=== PATIENT | male | born 1955 | race Caucasian/White ===

== ENCOUNTER 2021-11-29 04:38 | Day surgery (SDC) | payer BC ==
[2021-11-26 12:53] VITALS: BMI 26.4
[2021-11-29] MEDS ORDERED: ACETAMINOPHEN INJECTION 100 ML IVPB ONE (07:04)
[2021-11-29] MEDS ORDERED: PROPOFOL 40 ML ONE (07:04)
[2021-11-29] MEDS ORDERED: MIDAZOLAM HCL 2 MG/2 ML SINGLE DOSE VIAL ONE (07:04)
[2021-11-29] MEDS ORDERED: LIDOCAINE HCL 2% 100 MG/5 ML DISP.SYRIN ONE (07:05)
[2021-11-29] MEDS ORDERED: SUCCINYLCHOLINE CHLORIDE 200 MG/10 ML SYRINGE ONE (07:09)
[2021-11-29] MEDS ORDERED: GEMCITABINE HCL 1 GM/50 ML DISP.SYRIN (OR USE ONLY) IS ONE ×2 (07:30)
[2021-11-29] MEDS ORDERED: DEXAMETHASONE SOD PHOSPHATE 4 MG/1 ML VIAL ONE (07:44)
[2021-11-29] MEDS ORDERED: ONDANSETRON 4 MG/2 ML VIAL ONE (07:44)
[2021-11-29] MEDS ORDERED: ceFAZolin SODIUM 1 GM VIAL IVPB ONE (07:55)
[2021-11-29] MEDS ORDERED: ROCURONIUM BROMIDE 50 MG/5 ML SYRINGE ONE (07:59)
[2021-11-29] MEDS ORDERED: NEOSTIGMINE METHYLSULFATE 0.5 MG/1 ML - 10 ML MDV ONE (08:16)
[2021-11-29] MEDS ORDERED: LIDOCAINE HCL 2% JELLY 10 ML CARTRIDGE ONE (08:44)
[2021-11-29] MEDS ORDERED: LIDOCAINE HCL 2% JELLY 10 ML CARTRIDGE TP ONE ×2 (08:47→09:05)
[2021-11-29] MEDS ORDERED: PROPOFOL 20 ML ONE ×2 (08:58→08:59)
[2021-11-29] MEDS ORDERED: ONDANSETRON 4 MG/2 ML VIAL IVPUSH PRN (09:29)
[2021-11-29] MEDS ORDERED: oxyCODONE HCL 5 MG TABLET PO PRN (09:29)
[2021-11-29 13:03] VITALS: TEMP 98
[2021-11-29 13:10] VITALS: BP 108/57; PULSE 66; RESP 18
== END 2021-11-29 13:10 | disposition home or self-care (01) ==
LOC: JASU-SURG 04:38
PROVIDERS: ATTEND Urology
PROC: 0VB07ZZ Excision of Prostate, Via Natural or Artificial Opening (ICD-10-PCS; 2021-11-29)
PROC: 0T5B8ZZ Destruction of Bladder, Via Natural or Artificial Opening Endoscopic (ICD-10-PCS; principal; 2021-11-29 07:30)
DX: C67.9 Malignant neoplasm of bladder, unspecified (principal); N40.1 Benign prostatic hyperplasia with lower urinary tract symptoms; R33.9 Retention of urine, unspecified; N21.0 Calculus in bladder
CPT/HCPCS: 51720; 52235; 52648; J9201; 88108; 88305-TC; 88307-TC; 94760; C2617; C9803-CS; U0003; U0005

== ENCOUNTER 2021-12-03 04:11 | Day surgery (SDC) | payer BC ==
[2021-12-02 08:36] VITALS: BMI 26.4
[2021-12-03] MEDS ORDERED: PROPOFOL 20 ML ONE ×2 (15:00→16:20)
[2021-12-03] MEDS ORDERED: MIDAZOLAM HCL 2 MG/2 ML SINGLE DOSE VIAL ONE (15:02)
[2021-12-03] MEDS ORDERED: ONDANSETRON 4 MG/2 ML VIAL IVPUSH PRN (15:15)
[2021-12-03] MEDS ORDERED: LACTATED RINGERS SOLUTION 1,000 ML IV SCH (15:15)
[2021-12-03] MEDS ORDERED: ACETAMINOPHEN 325 MG TABLET (FP) PO PRN (15:15)
[2021-12-03] MEDS ORDERED: LIDOCAINE HCL 2% JELLY 10 ML CARTRIDGE ONE (15:28)
[2021-12-03] MEDS ORDERED: ceFAZolin SODIUM 1 GM VIAL ONE ×2 (15:33)
[2021-12-03] MEDS ORDERED: ceFAZolin SODIUM 1 GM VIAL IVPB ONE (15:36)
[2021-12-03] MEDS ORDERED: ONDANSETRON 4 MG/2 ML VIAL ONE (15:45)
[2021-12-03] MEDS ORDERED: ACETAMINOPHEN 1000 MG/100 ML BAG IVPB ONE (17:50)
[2021-12-03 18:33] VITALS: RESP 18
[2021-12-03 19:11] VITALS: BP 124/72; PULSE 60; TEMP 97.3
== END 2021-12-03 19:12 | disposition home or self-care (01) ==
LOC: JASU-SURG 04:11
PROVIDERS: ATTEND Urology
PROC: 0VT08ZZ Resection of Prostate, Via Natural or Artificial Opening Endoscopic (ICD-10-PCS; principal; 2021-12-03 14:30)
DX: N40.1 Benign prostatic hyperplasia with lower urinary tract symptoms (principal); N13.8 Other obstructive and reflux uropathy; C67.9 Malignant neoplasm of bladder, unspecified
CPT/HCPCS: 88305-TC; 94760

== ENCOUNTER 2021-12-23 04:16 | Day surgery (SDC) | payer BC ==
[2021-12-22 12:27] VITALS: BMI 27.0
[2021-12-23] MEDS ORDERED: ACETAMINOPHEN INJECTION 100 ML IVPB ONE (06:39)
[2021-12-23] MEDS ORDERED: PROPOFOL 40 ML ONE (06:44)
[2021-12-23] MEDS ORDERED: LIDOCAINE HCL/PF 2% SDV 5ML VIAL ONE (06:44)
[2021-12-23] MEDS ORDERED: ROCURONIUM BROMIDE 50 MG/5 ML SYRINGE ONE (06:45)
[2021-12-23] MEDS ORDERED: DEXAMETHASONE SOD PHOSPHATE 4 MG/1 ML VIAL ONE (06:45)
[2021-12-23] MEDS ORDERED: ONDANSETRON 4 MG/2 ML VIAL ONE (06:45)
[2021-12-23] MEDS ORDERED: ONDANSETRON 4 MG/2 ML VIAL IVPUSH PRN (07:09)
[2021-12-23] MEDS ORDERED: LACTATED RINGERS SOLUTION 1,000 ML IV SCH (07:15)
[2021-12-23] MEDS ORDERED: MIDAZOLAM HCL 2 MG/2 ML SINGLE DOSE VIAL ONE (07:29)
[2021-12-23] MEDS ORDERED: ceFAZolin SODIUM 1 GM VIAL ONE (07:56)
[2021-12-23] MEDS ORDERED: ceFAZolin SODIUM 1 GM VIAL IVPB ONE (07:58)
[2021-12-23] MEDS ORDERED: LIDOCAINE HCL 2% JELLY 11 ML TP ONE (08:03)
[2021-12-23] MEDS ORDERED: LIDOCAINE HCL 2% JELLY 10 ML CARTRIDGE TP ONE (08:05)
[2021-12-23] MEDS ORDERED: GLYCOPYRROLATE 0.2 MG/1 ML VIAL ONE (08:18)
[2021-12-23] MEDS ORDERED: NEOSTIGMINE METHYLSULFATE 0.5 MG/1 ML - 10 ML MDV ONE (08:19)
[2021-12-23 09:51] VITALS: RESP 18
[2021-12-23 11:58] VITALS: BP 110/58; PULSE 67; TEMP 97.3
== END 2021-12-23 12:01 | disposition home or self-care (01) ==
LOC: JASU-SURG 04:16
PROVIDERS: ATTEND Urology
PROC: 0V508ZZ Destruction of Prostate, Via Natural or Artificial Opening Endoscopic (ICD-10-PCS; 2021-12-23)
PROC: 0T5B8ZZ Destruction of Bladder, Via Natural or Artificial Opening Endoscopic (ICD-10-PCS; principal; 2021-12-23 07:30)
DX: C67.9 Malignant neoplasm of bladder, unspecified (principal); N40.0 Benign prostatic hyperplasia without lower urinary tract symptoms
CPT/HCPCS: 88307-TC; 94760

== ENCOUNTER 2022-02-24 04:14 | Day surgery (SDC) | payer BC ==
[2022-02-17 11:56] VITALS: BMI 27.8
[2022-02-24] MEDS ORDERED: LIDOCAINE HCL/PF 2% SDV 5ML VIAL ONE (07:26)
[2022-02-24] MEDS ORDERED: MIDAZOLAM HCL 2 MG/2 ML SINGLE DOSE VIAL ONE (07:27)
[2022-02-24] MEDS ORDERED: FENTANYL CITRATE/PF 50 MCG/ML VIAL ONE (07:27)
[2022-02-24] MEDS ORDERED: PROPOFOL 40 ML ONE (07:27)
[2022-02-24] MEDS ORDERED: SEVOFLURANE 250 ML BTL ONE (07:31)
[2022-02-24] MEDS ORDERED: ceFAZolin SODIUM 1 GM VIAL ONE (08:24)
[2022-02-24] MEDS ORDERED: DEXAMETHASONE SOD PHOSPHATE 4 MG/1 ML VIAL ONE (08:27)
[2022-02-24] MEDS ORDERED: ONDANSETRON 4 MG/2 ML VIAL ONE (08:27)
[2022-02-24] MEDS ORDERED: ceFAZolin SODIUM 1 GM VIAL IVPB ONE (08:27)
[2022-02-24] MEDS ORDERED: KETOROLAC TROMETHAMINE 30 MG/1 ML VIAL ONE (08:40)
[2022-02-24] MEDS ORDERED: IBUPROFEN 800 MG/8 ML IJ IVPB PRN (08:53)
[2022-02-24] MEDS ORDERED: ONDANSETRON 4 MG/2 ML VIAL IVPUSH PRN (08:53)
[2022-02-24] MEDS ORDERED: oxyCODONE HCL 5 MG TABLET PO PRN (08:53)
[2022-02-24] MEDS ORDERED: LACTATED RINGERS SOLUTION 1,000 ML IV SCH (09:00)
[2022-02-24 10:30] VITALS: BP 119/66; PULSE 66; RESP 22; TEMP 97.4
== END 2022-02-24 10:40 | disposition home or self-care (01) ==
LOC: JASU-SURG 04:14
PROVIDERS: ATTEND Urology
PROC: 0TP98DZ Removal of Intraluminal Device from Ureter, Via Natural or Artificial Opening Endoscopic (ICD-10-PCS; principal; 2022-02-24 07:30)
PROC: 0TBB8ZX Excision of Bladder, Via Natural or Artificial Opening Endoscopic, Diagnostic (ICD-10-PCS; 2022-02-24 07:30)
DX: D30.3 Benign neoplasm of bladder (principal); N30.00 Acute cystitis without hematuria
CPT/HCPCS: 76000-TC-FY; 88307-TC; 88342-TC; 94760

== ENCOUNTER 2022-03-08 05:17 | Day surgery (SDC) | payer BC ==
[2022-03-04 15:58] VITALS: BMI 27.6
[2022-03-08 10:42] VITALS: TEMP 97.8
[2022-03-08 11:17] VITALS: BP 115/53; PULSE 66; RESP 12
== END 2022-03-08 11:20 | disposition home or self-care (01) ==
LOC: JASU-ENDO 05:17
PROVIDERS: ATTEND Student in an Organized Health Care Education/Training Program
PROC: 0D5L8ZZ Destruction of Transverse Colon, Via Natural or Artificial Opening Endoscopic (ICD-10-PCS; 2022-03-08)
PROC: 0DBH8ZX Excision of Cecum, Via Natural or Artificial Opening Endoscopic, Diagnostic (ICD-10-PCS; 2022-03-08)
PROC: 0D5N8ZZ Destruction of Sigmoid Colon, Via Natural or Artificial Opening Endoscopic (ICD-10-PCS; principal; 2022-03-08 08:30)
DX: Z12.11 Encounter for screening for malignant neoplasm of colon (principal); D12.0 Benign neoplasm of cecum; D12.5 Benign neoplasm of sigmoid colon; D12.3 Benign neoplasm of transverse colon
CPT/HCPCS: 88305-TC

== ENCOUNTER 2022-06-21 03:54 | Day surgery (SDC) | payer OTHER, BC ==
[2022-06-20 11:19] VITALS: BMI 27.8
[2022-06-21] MEDS ORDERED: PROPOFOL 20 ML ONE (11:49)
[2022-06-21] MEDS ORDERED: LIDOCAINE HCL/PF 2% SDV 5ML VIAL ONE (11:50)
[2022-06-21] MEDS ORDERED: DEXAMETHASONE SOD PHOSPHATE 4 MG/1 ML VIAL ONE (11:50)
[2022-06-21] MEDS ORDERED: ONDANSETRON 4 MG/2 ML VIAL ONE (11:50)
[2022-06-21] MEDS ORDERED: ONDANSETRON 4 MG/2 ML VIAL IVPUSH PRN (12:16)
[2022-06-21] MEDS ORDERED: oxyCODONE HCL 5 MG TABLET PO PRN (12:16)
[2022-06-21] MEDS ORDERED: LACTATED RINGERS SOLUTION 1,000 ML IV SCH (12:30)
[2022-06-21] MEDS ORDERED: ceFAZolin SODIUM 1 GM VIAL ONE (13:06)
[2022-06-21] MEDS ORDERED: ceFAZolin SODIUM 1 GM VIAL IVPB ONE (13:06)
[2022-06-21 13:42] VITALS: RESP 16
[2022-06-21 15:40] VITALS: BP 110/65; PULSE 66; TEMP 97.4
== END 2022-06-21 14:25 | disposition home or self-care (01) ==
LOC: JASU-SURG 03:54
PROVIDERS: ATTEND Urology
PROC: 0TJB8ZZ Inspection of Bladder, Via Natural or Artificial Opening Endoscopic (ICD-10-PCS; principal; 2022-06-21 12:30)
DX: Z08 Encounter for follow-up examination after completed treatment for malignant neoplasm (principal); C67.9 Malignant neoplasm of bladder, unspecified
CPT/HCPCS: 94760